=== PATIENT | male | born 1980 | race Caucasian/White ===

== ENCOUNTER 2018-03-02 08:58 | Day surgery (SDC) | payer OTHER ==
[2018-03-02] MEDS ORDERED: FENTAnyl 50 MCG/ML VIAL (10:42)
[2018-03-02] MEDS ORDERED: MIDAZOLAM 1 MG/ML 2 ML INJ ×2 (10:43)
== END 2018-03-02 12:06 | disposition home or self-care (01) ==
LOC: GIL 08:58
DX: K64.4 Residual hemorrhoidal skin tags (principal)
CPT/HCPCS: 45378; 88305